=== PATIENT | female | born 1960 | race Hispanic/Latino ===

== ENCOUNTER 2018-02-20 07:05 | Outpatient (CLI) | payer OTHER ==
--- NOTE | 2018-02-20 08:11 | Ultrasound Report ---
THYROID ULTRASOUND INDICATION: Hypothyroidism. COMPARISON: None similar at this institution. FINDINGS: Grayscale and color-flow thyroid sonography demonstrates normal contours, echotexture and vascularity. Right thyroid lobe estimated at 3.2 x 0.8 x 1.6 cm. Left thyroid lobe is 3 x 1 x 1.4 cm. A 0.3 cm, indeterminate, hypoechoic nodule towards the lower pole noted, image 22. Isthmus measures 0.3 cm AP. CONCLUSION: Unremarkable thyroid ultrasound with a tiny, indeterminate left lower pole nodule incidentally noted, as described. Thank you for the opportunity to participate in this patient's care.
== END 2018-02-20 07:06 | disposition home or self-care (01) ==
LOC: US 07:05
DX: E03.9 Hypothyroidism, unspecified (principal)
CPT/HCPCS: 76536